=== PATIENT | male | born 1980 ===

== ENCOUNTER 2025-03-07 06:32 | Inpatient (IN) | payer OTHER, SELFPAY ==
[2025-03-07] VITALS (24 sets, daily range): BP systolic 135–172; BP diastolic 90–119; BMI 22.1
[2025-03-07 03:32] LABS: Glucose - Point of Care 93 mg/dl (70-99)
--- NOTE | 2025-03-07 04:02 | ED.GENMED ---
History of Present Illness
General
Chief Complaint: Substance Abuse
Source: patient
Exam Limitations: clinical condition
Time Seen by Provider: 03/07/25 03:57
History of Present Illness
History of Present Illness:
See MDM
Past History
Past History
ED Past Medical History: None
ED Past Surgical History: None
Social History
Drug: Narcotics
Phy Exam
Physical Exam
Physical Exam:
See MDM
Course
Orders/Labs/Results
Orders:
Orders
03/07/25 04:01
Naloxone [Narcan] 0.4 mg IV NOW STA
03/07/25 04:42
Alcohol Urgent
Complete Blood Count/With Diff Urgent
Comprehensive Metabolic Panel Urgent
03/07/25 05:22
Naloxone [Narcan] 0.4 mg IV NOW STA
Abnormal Lab Results
03/07/25
04:42
WBC 11.1 H 10^3/uL
(4.8-10.8)
RBC 4.45 L 10^6/uL
(4.70-6.10)
Hgb 12.1 L g/dL
(13.0-18.0)
Hct 38.9 L %
(39.0-52.0)
MCHC 31.1 L g/dL
(33.0-37.0)
Absolute Neuts (auto) 8.5 H 10^3/uL
(1.4-6.5)
Neutrophils % 76.6 H %
(42.2-75.2)
Lymphocytes % 17.0 L %
(20.5-51.1)
03/07/25 04:42
03/07/25 04:42
Vital Signs
Initial and Last Documented VS:
Initial Vital Signs
Temp Pulse Resp BP Pulse Ox
99 F 74 19 157/110 97
03/07/25 03:37 03/07/25 03:37 03/07/25 03:37 03/07/25 03:37 03/07/25 03:37
Last Documented Vital Signs
Temp Pulse Resp BP Pulse Ox
99 F 114 23 167/93 83
03/07/25 03:37 03/07/25 05:16 03/07/25 05:16 03/07/25 05:16 03/07/25 04:03
MDM/Problems Addressed
Differential Diagnosis Includes:
Note:
CHIEF COMPLAINT(S)
Altered mental status.
HISTORY OF PRESENT ILLNESS
The patient is a 44-year-old male who was brought to the emergency department by police. He was reported to be excessively sleepy and unable to communicate effectively, which inhibited his ability to be incarcerated. There is suspicion that the
patient used heroin, as indicated by the police. Upon initial examination, his pupils were not pinpoint. The patient provided an incorrect name to the police during the encounter. The plan involves administration of naloxone (Narcan) due to
suspected opioid overdose and conducting further investigations, including blood work to assess alcohol level and potential head imaging if necessary.
PHYSICAL EXAM
General: Sleepy but responds to verbal stimuli. Disheveled
Skin: Warm, dry.
Head: Normocephalic, atraumatic
Neck: Appears supple, trachea midline.
Eyes, Ears, Nose, Mouth, and Throat: Pupils 3 mm and reactive
Cardiovascular: No signs of cyanosis
Respiratory: Respirations are non-labored.
Abdomen: Non-distended
Musculoskeletal: No deformities
Neurological: Is able to move all 4 extremities.
Psychiatric: Flat affect
PLAN
Administer naloxone due to suspected opioid overdose. If insufficient response, proceed with basic blood work including assessment of alcohol levels, and consider head imaging.
SUMMARY OF ENCOUNTER
The patient, a 44-year-old male, was brought to the emergency department by police due to excessive sleepiness and inability to be incarcerated. Suspected heroin use prompted the administration of naloxone. Further management involved obtaining
blood work to assess alcohol levels and considering head imaging if the patients condition does not improve.
EMERGENCY TREATMENTS ADMINISTERED
Naloxone was administered.
MEDICATION RECONCILIATION
Naloxone was administered to the patient due to suspected opioid overdose.
DIAGNOSIS
- Suspected opioid overdose (ICD-10: F11.129)
- Altered mental status (ICD-10: R41.82)
- Possible alcohol intoxication (ICD-10: F10.129)
MEDICAL DECISION MAKING
-Complexity of Data Reviewed: Chronic conditions affecting care have not been explicitly discussed, but a suspected opioid overdose and altered mental status were addressed, along with a differential diagnosis that includes:
- Opioid overdose
- Alcohol intoxication
- Head trauma
- Metabolic imbalance
- Neurological disorder
- Hypoglycemia
- Sedative/hypnotic/anxiolytic intoxication
- Polypharmacy effects
- Infection
-Data:
Category 1:
- The patient was treated with naloxone for suspected opioid overdose.
- Initial evaluation included a physical examination, and blood work was planned to assess alcohol levels.
Category 2:
N/A
-Risk:
- Prescription medication was administered (naloxone), due to suspected opioid overdose.
- Consideration of head imaging and further testing is based on ongoing evaluation of the patients response to initial treatment.
03/07/25 - 04:46
Administered Narcan with positive response; patient became alert and conversational. Patient admits heroin use earlier today, denies suicidal intent.
03/07/25 - 05:27
Patient initially experienced a lucid interval after the first dose of Narcan. Currently, the patient is diaphoretic and agitated but remains difficult to arouse. Concern for possible co-ingestion. Administering a second dose of Narcan. Plan to
admit the patient to the ICU for airway monitoring.
SUMMARY OF ENCOUNTER
The patient, a 44-year-old male, was brought to the emergency department by the police due to altered mental status and excessive sleepiness. There was suspicion of heroin use. On initial evaluation, the patient was non-compliant due to his altered
mental status. A dose of naloxone (Narcan) was administered, after which the patient became alert and admitted to recent heroin use. Although the patient denied other substance use, he soon experienced altered mental status again, showed signs of
withdrawal, and was difficult to arouse. Concern for possible co-ingestion prompted the administration of a second dose of naloxone. Due to the patients condition, he was admitted to the ICU for airway monitoring and management of suspected drug
overdose.
DISPOSITION
Admit to ICU for airway monitoring and overdose management.
ASSESSMENT
Suspected opioid overdose with secondary altered mental status and potential co-ingestion.
EMERGENCY TREATMENTS ADMINISTERED
Naloxone (Narcan) was administered initially and a second dose was given due to reoccurrence of symptoms.
PLAN
Administer a second dose of naloxone due to persistent altered mental status. Admit the patient to the ICU for close monitoring of airway and further management of opioid overdose.
MEDICATION RECONCILIATION
Naloxone (Narcan) was administered due to suspected opioid overdose.
MEDICAL DECISION MAKING
-Complexity of Data Reviewed: Chronic conditions affecting care include suspected opioid overdose and altered mental status. The differential diagnosis considered includes opioid overdose, alcohol intoxication, head trauma, metabolic imbalance,
neurological disorder, hypoglycemia, sedative/hypnotic/anxiolytic intoxication, polypharmacy effects, and infection.
-Data:
Category 1: Naloxone administration was reviewed due to suspected opioid overdose. Physical examination and plan for further airway monitoring in ICU were considered.
Category 3: Discussion of patient management based on symptoms and response to treatment, leading to decision for ICU admission.
-Risk: Due to the severity of the opioid overdose and concerns for co-ingestion, the patient was admitted to the ICU for close monitoring and management, highlighting the significant risk posed by the situation.
DIAGNOSIS
- Suspected opioid overdose (ICD-10: F11.129)
- Altered mental status (ICD-10: R41.82)
- Possible co-ingestion leading to reoccurrence of symptoms after initial improvement.
*Pulse Oximetry
SaO2: 83
Oxygen Mode of Delivery: Room air
Patient hypoxic: no
*Critical Care Note
Total Time (30-74mins, 75-104mins- exclusive of procedures): 33 min
comment:
The high probability of a clinically significant, sudden or life threatening deterioration of the cardiovascular system(s) required my full and direct attention, intervention and personal management. The aggregate critical care time was 33 minutes.
This time is in addition to time spent performing reported procedures but includes the following:
[x] Data Review and interpretation
[x] Patient assessment and monitoring of vital signs
[x] Documentation
[x] Medication orders and management
ED Attending Note
-
Portions of this chart may have been created with voice recognition software.� Occasional wrong word or��sound alike� substitutions may have occurred due to the inherent limitations of voice recognition software.
Discharge Plan
Departure
Patient Disposition: Admit
Date of Disposition: 03/07/25
Time of Disposition: 05:30
Admit to: ICU
Presentation/result/management discussed w/ accepting MD/DO: Hospitalist
Discharge Problem:
Acute drug overdose, Altered mental status
Prescriptions:
No Action
Unobtainable
0
Interventions
Interventions:
*Risk Screen - Suicide Last Done: 03/07/25 03:54
*General Assessment Last Done: 03/07/25 03:54
*Neglect/Abuse Screening Last Done: 03/07/25 03:54
*ED- Fall Risk Assessment Last Done: 03/07/25 03:54
*ED COVID-19 Vaccine History Last Done: 03/07/25 03:54
*ED Influenza Vaccine History Last Done: 03/07/25 03:54
ED-Psychological Assessment Last Done: 03/07/25 03:54
Discharge Date and Time
Print Language: AZERI
[2025-03-07] MEDS: NARCAN 0.4 MG IV ×2 (04:47→05:30)
[2025-03-07 04:48] LABS: Hematocrit 38.9 % (39.0-52.0); Hemoglobin 12.1 g/dL (13.0-18.0); Mean Corp Hgb Conc. 31.1 g/dL (33.0-37.0); Mean Corpuscular Volume 87.4 fL (80.0-94.0); Nucleated Red Blood Cells % 0 % (-); Platelet Count 273 10^3/uL (130-400); Red Cell Dist. Width 14.4 % (11.5-14.5)
[2025-03-07 05:09] LABS: ALT (SGPT) 37 U/L (0-50); AST (SGOT) 36 U/L (17-59); Albumin 4.2 g/dl (3.5-5.0); Alkaline Phosphatase 81 U/L (38-126); Blood Urea Nitrogen 20 mg/dl (9-20); Calcium 9.3 mg/dl (8.4-10.2); Carbon Dioxide 26 mmol/L (22-30); Chloride 107 mmol/L (98-107); Glucose 98 mg/dl (70-99); Potassium 4.7 mmol/L (3.5-5.1); Sodium 139 mmol/L (135-145); Total Protein 7.5 g/dl (6.3-8.2); eGFR > 60.00
[2025-03-07] MEDS: ZOFRAN 4 MG IV (05:42)
[2025-03-07] MEDS: VALIUM INJECTION 5 MG IV (06:07)
--- NOTE | 2025-03-07 06:12 | HPS.HSE ---
Family Physician
-
Family Physician: INTERVIEWE UNKNOWN - PT NOT
Chief Complaint
-
Somnolence
History of Present Illness
Patient is a 44y M with unknown PMH who presents to ED via police for evaluation of somnolence / lethargy. History obtained entirely from ED staff given patient poor mental status / inability to contribute. Patient was brought to the ED by
police after he was found to be somnolent / poorly responsive and had difficult answering police questions. He is reportedly homeless. Upon arrival to the ED, patient was lethargic - but reportedly followed some commands and answered some
questions. He admitted to smoking heroin earlier in the evening. Patient received a dose of Narcan in the ED and began to have new symptoms of agitation, profuse diaphoresis, diarrhea.
At the time of my examination, patient is profusely diaphoretic, incontinent of stool, tremulous. He is agitated with any tactile interaction. He will open his eyes, but does not answer questions or follow commands.
Medical History
Past Medical History
Past Medical History: Reports Other
Additional Past Medical History:
Unknown
Past Surgical History: Reports Other
Additional Past Surgical History:
Unknown
Social History
Unable to obtain full social history at this time due to: Patient Non-verbal
Family History
Family History: Unable to Obtain
Allergies / Home Medications
Allergies reflects when Allergies were last updated in [employer].
Home Medications with original date entered in [employer]
Allergy/Medication List:
Unable to Obtain
If medication reconciliation has not been performed, why?: Unresponsive
Review of Systems
-
Unable to obtain full review of systems at this time due to: Patient Non-verbal
Physical Exam
Vital Signs
Vital Signs
Temp Pulse Resp BP Pulse Ox
99 F 114 23 167/93 83
03/07/25 03:37 03/07/25 05:16 03/07/25 05:16 03/07/25 05:16 03/07/25 04:03
Physical Exam
General: Other (44y acutely ill male profusely diaphoretic, tremulous. Opens eyes but does not answer questions / follow commands.)
HEENT: Other (Dry MM. Neck supple.)
Respiratory: Other (Decreased at bases - otherwise clear.)
Cardiac: S1/S2 and Tachycardia
GI: Other (No evident tenderness. Incontinent of loose stool.)
Musculoskeletal: No Clubbing, No Cyanosis and No Edema
Neuro: Other (Tremulous / diaphoretic. Opens eyes but does not answer questions / follow commands.)
Psych: Agitated (Restless)
Laboratory Results
-
03/07/25 04:42
03/07/25 04:42
Laboratory Results
Total Bilirubin 0.4 mg/dl (0.2-1.3) 03/07/25 04:42
AST 36 U/L (17-59) 03/07/25 04:42
ALT 37 U/L (0-50) 03/07/25 04:42
Alkaline Phosphatase 81 U/L (38-126) 03/07/25 04:42
Impression/Plan
-
A/P: Patient is a 44y M with unknown PMH who was brought to ED by police for evaluation of somnolence / poor responsiveness.
Opioid Withdrawal Syndrome
- Admit to ICU for further evaluation and treatment.
- Patient appears to be in precipitated withdrawal with diaphoresis, tremulousness, diarrhea, N/V, etc.
- Opioid withdrawal protocol.
- IVF support.
- Follow-up UDS to rule out / verify any additional substances.
- Regulatory And Compliance Technician evaluation for additional recommendations.
- Follow for clinical improvement / improved mental state and meaningful responsiveness.
- CT head when patient calm / cooperative enough to proceed.
Hypoxemia
- ? secondary to aspiration event, etc.
- O2 support.
- Check CXR.
- Follow for development of fever / other new symptoms.
DVT Prophylaxis: SCDs
Code Status: Full
[2025-03-07 06:14] LABS: Troponin I 0.015 ng/ml
--- NOTE | 2025-03-07 07:35 | PTCARENOTE ---
Received patient from ED, drowsy but arousable to voice, A&Ox2, only answered simple questions at this time, can follow simple commands, face flushed, sweaty, denied pain throughout, ST, BP WNL, on RA, vomited once.
Patient only reported substance use as part of PMH, stated no known drug allergy.
--- NOTE | 2025-03-07 08:01 | W.PN.HOSP.TC ---
Today's Communication/Plan
-
Continue buprenorphine and oxycodone
Monitor GCS and COWS
Maintenance IVF, NPO
Assessment / Plan
Assessment / Plan
#Acute metabolic encephalopathy
#Precipitated opiate withdrawal
#Opioid intoxication with possible OD
- Presented with somnolence/minimal responsiveness that turned agitation following Narcan
- COWS score currently 35; started on buprenorphine protocol and as needed oxycodone
- Was also started on as needed clonidine, hydroxyzine, Zofran for symptomatic care
- Nursing today states agitation seems to be improving at this time
- Will continue with buprenorphine protocol and as needed oxycodone
- If COWS score starts to uptrend will need to consider Precedex drip
- Monitor COWS and GCS
#Leukocytosis
- Unclear cause, question of aspiration when he was more somnolent
- Chest x-ray without any abnormalities; UA ordered and results pending
- Continue to trend CBC and temperature curve, hold off on antibiotics for now
#Homeless status
Diet: N.p.o. until mental status improves, maintenance IVF
DVT: SQ Lovenox
Code: Full
Dispo: Rehab if amenable
Anticipated Discharge: > 48 hours
Subjective/Interval History
-
Date of Service: March 07, 2025
Seen and examined at the bedside. No acute events since admission though remains with agitation. Hypertensive with tachycardia though otherwise stable on room air without fever
Labs came back with WBC 11.1. Chest x-ray was unremarkable for acute processes. Most recent COWS 35
ROS limited by his mental status and acuity of his condition
Objective Data
-
Labs:
Laboratory Results
03/07/25
04:42
WBC 11.1 H
Hgb 12.1 L
Hct 38.9 L
Plt Count 273
Sodium 139
Potassium 4.7
Chloride 107
Carbon Dioxide 26
BUN 20
Creatinine 0.7
Glucose 98
Calcium 9.3
Total Bilirubin 0.4
AST 36
ALT 37
Alkaline Phosphatase 81
Vital Signs:
Vital Signs
Temp Pulse Resp BP Pulse Ox
99 F 68 36 135/90 94
03/07/25 03:37 03/07/25 06:30 03/07/25 06:30 03/07/25 06:22 03/07/25 06:15
Review of Systems
-
Unable to obtain full review of systems at this time due to: Acuity
Physical Exam
-
General: Well Developed, Appears in Distress and Appears Chronically Ill
HEENT: Normocephalic, Atraumatic, Moist Mucous Membranes, Anicteric and PERRLA
Respiratory: Clear to Auscultation and Non Labored Respirations; Negative Accessory Resp Muscle Use
Cardiac: Regular Rhythm, S1/S2 and Tachycardic; Negative Murmur, Rub or Gallop
GI: Soft, Nontender, Nondistended and Normal Bowel Sounds
Musculoskeletal: No Clubbing, No Cyanosis and No Edema
Skin: Warm and Dry; Negative Rash
Neuro: Awake, Nonfocal/Grossly Intact and Central Nerve's Intact; Negative Alert or Oriented
Psych: Agitated
Data Reviewed
-
Labs: Labs Reviewed by me and Discussed with Patient
[2025-03-07] MEDS: LR 1000 IV ×3 (08:14→22:39)
[2025-03-07] MEDS: BELBUCA 300 MCG BUCCAL ×5 (08:14→23:39)
[2025-03-07] MEDS: NSS (PRESERVATIVE FREE) 10 ML IV (08:20)
[2025-03-07] MEDS: PROTONIX IV 40 MG IV (08:20)
--- NOTE | 2025-03-07 08:21 | CON.INTV ---
Consultation
Consultation Request
Date/Time Consultation Requested: 03/07/2025708
Date/Time Consultation Performed: 03/07/2025817
Requesting Provider: Dr. Greenberg
Performing Provider: Dr. Nguyen
Reason for Consultation: Opiate withdrawal/AMS
Medical History
-
Chief Complaint: Somnolent/lethargic
History of Present Illness:
44-year-old male with no known past medical history who was dropped off at the hospital by [employer] police after doing a courtesy run for patient that appeared off balance and appeared lethargic/altered. Per documentation, the patient stated that
he smoked heroin before coming into the hospital. Patient was unable to stay awake down in the ER. Patient was given Narcan 0.4 mg IV x 2, however this led to him becoming extremely agitated. He was given 5 mg of diazepam. Initial vitals showed
he was afebrile to 99 �F, pulse rate 74, respiratory rate 19, BP 157/110 and saturating 97% on room air. Initial labs showed mild leukocytosis to 11.1, Hb 12.1, blood gas with no evidence of hypercapnia (pH 7.43, pCO2 33), troponin negative at
0.015, alcohol level negative, and urine drug screen with positive for multiple drugs including fentanyl, amphetamines, methamphetamines, cocaine and marijuana. CT head showed no acute intracranial hemorrhage or mass effect. CXR showed no acute
cardiopulmonary process. Given his lethargic state that progressed to significant agitation after Narcan was administered which was due to opiate withdrawal, and the fact that he may need medications to treat his symptoms which could include
Precedex drip, patient was admitted to the ICU for further care with haul truck driver service consulted for additional management/recommendations.
Patient was seen this morning. He is tired and minimally responsive. He does open his eyes to tactile and verbal stimulation. Current heart rate 121, BP 157 105 and he is saturating 100% currently on room air.
PMHx: Polysubstance abuse including marijuana, fentanyl, amphetamines/methamphetamines and cocaine
PSHx: Unknown
Past Medical History
Past Medical History: Other (Above as per HPI)
Past Surgical History: Other (Above as per HPI)
Social History
Tobacco: Other (Unknown)
Alcohol: Other (Unknown)
Drug: Marijuana, Cocaine, Narcotics and IVDA (Unknown)
Family History
Family History: Unable to Obtain
Allergies / Home Medications
Allergies
Allergy/AdvReac Type Severity Reaction Status Date / Time
No Known Drug Allergies Allergy Unknown Verified 03/07/25 09:42
Home Medications
�Medication �Instructions �Recorded �Confirmed �Last Taken �Type
Unobtainable 03/07/25 03/07/25 Unknown History
Review of Systems
-
Unable to Obtain full review of systems at this time due to: Acuity (Patient is being uncooperative and is also lethargic)
Vitals / Labs / Diagnostic Testing
Vital Signs
Temp Pulse Resp BP Pulse Ox
98.1 F 110 29 168/103 97
03/07/25 07:40 03/07/25 10:25 03/07/25 09:30 03/07/25 10:25 03/07/25 09:30
Lab Data
03/07/25 04:42
03/07/25 04:42
Laboratory Results
03/07/25
08:46
PT 13.5
INR 1.00
APTT 30.2
Diagnostic Testing:
Physical Exam
-
HEENT: Normocephalic and Anicteric
Cardiovascular: S1/S2 and Peripheral Edema (negative)
Respiratory: Wheeze (negative), Rales (negative), Rhonchi (negative) and Non-Labored Respirations
GI: Soft, Non Distended, Non Tender and Normal Bowel Sounds
Neurology: Tremors (negative) and Other (Lethargic although arousable to voice and tactile stimulation but then quickly falls back asleep)
Skin: Warm and Dry
General: Respiratory Distress (negative), Comfortable, Fever (negative) and Chills (negative)
Assessment
-
Assessment: 44-year-old male with no known past medical history who was dropped off at the hospital by [employer] police after doing a courtesy run for patient that appeared off balance and appeared lethargic/altered. Per documentation, the patient
stated that he smoked heroin before coming into the hospital. Patient was unable to stay awake down in the ER. Patient was given Narcan 0.4 mg IV x 2, however this led to him becoming extremely agitated. He was given 5 mg of diazepam. Initial
vitals showed he was afebrile to 99 �F, pulse rate 74, respiratory rate 19, BP 157/110 and saturating 97% on room air. Initial labs showed mild leukocytosis to 11.1, Hb 12.1, blood gas with no evidence of hypercapnia (pH 7.43, pCO2 33), troponin
negative at 0.015, alcohol level negative, and urine drug screen with positive for multiple drugs including fentanyl, amphetamines, methamphetamines, cocaine and marijuana. CT head showed no acute intracranial hemorrhage or mass effect. CXR showed
no acute cardiopulmonary process. Given his lethargic state that progressed to significant agitation after Narcan was administered which was due to opiate withdrawal, and the fact that he may need medications to treat his symptoms which could
include Precedex drip, patient was admitted to the ICU for further care with haul truck driver service consulted for additional management/recommendations.
Chronic conditions SEAMER: Polysubstance abuse including marijuana, fentanyl, amphetamines/methamphetamines and cocaine
Impression:
#AMS with lethargic state likely due to fentanyl use s/p opiate withdrawal after Narcan given in ER
#Leukocytosis
#Anemia
#Respiratory alkalosis (mild)
#Polysubstance abuse with urine toxicology screen positive for fentanyl, amphetamines, methamphetamines, cocaine and marijuana
Plan:
- Continue to monitor in ICU and continue with opioid treatment with Subutex microdosing protocol
- Administer supportive medications as needed, using clonidine, hydroxyzine, Zofran, Toradol, Imodium, Zyprexa, Zanaflex and oxycodone
- Low threshold to start Precedex drip, especially if he becomes agitated - currently no need for Precedex infusion as he is calm and sleeping in NAD
- Continue aspiration precautions, keeping HOB >30-45�
- Maintain SpO2 >90-94%, using supplemental O2 if needed
- Trend WBC; monitor off antibiotics; monitor temperature curve
- Maintain MAP>65
- Treat hypertension with prn IV medications; may need to start scheduled antihypertensives if BP remains elevated with SBP >140 and DBP >90
- Replete electrolytes with K>4, Mg>2
- Maintain euglycemia with goal BG 140-180; check A1C
- Trend H/H and transfuse if needed to keep Hb>7g/dL; keep plt>20k, unless there is concern for bleeding then keep plt>50k
- prn nebulized bronchodilators - not currently bronchospastic
- Incentive spirometer encouraged 10x per hour for at least 4 hrs a day
- DVT ppx: LMWH
Continue to monitor in the ICU. Low threshold to start Precedex drip. May also need Cardene gtt if SBP becomes significantly elevated >180�200mmHg
If he remains stable with no need for drips, then will downgrade out of ICU tomorrow on 03/08.
Total time spent today was 82 minutes for this encounter. Time includes reviewing laboratory test/imaging results, reviewing pertinent medical records, obtaining and reviewing medical history, performing an appropriate exam, ordering medications,
tests and procedures. Time also includes documentation of this encounter, coordinating patient care and communicating with other healthcare professionals. Total time does not include separately billed tests performed on this date of service.
[2025-03-07] MEDS: TYLENOL 1000 MG PO ×3 (09:00→23:39)
[2025-03-07] MEDS: ZANAFLEX 2 MG PO ×2 (09:00→20:01)
[2025-03-07] MEDS: OXYCONTIN (CONTROLLED RELEASE) 40 MG PO ×3 (09:00→23:40)
[2025-03-07 09:24] LABS: INR 1.00; PT 13.5 Sec (11.4-14.6)
[2025-03-07 09:25] LABS: APTT 30.2 Sec (23.4-35.0)
[2025-03-07] MEDS: CATAPRES 0.1 MG PO (10:25)
[2025-03-07 11:32] LABS: Magnesium 2.2 mg/dl (1.6-2.3)
[2025-03-07 11:44] LABS: Glucose - Point of Care 96 mg/dl (70-99)
--- NOTE | 2025-03-07 12:18 | PTCARENOTE ---
Reassessed the patient, RASS -1, arousable to voice, less agitated/anxious with PRN meds, NSR, BP WNL, on RA, N/V improving, tolerating PO meds.
--- NOTE | 2025-03-07 13:56 | CM ---
CM reviewed chart, consult received for opioid withdrawal.
Patient seen bedside, able to provide mothers name and contact information for emergency contact: Dora Monreal [phone].
Patient reports he is living on the streets, offered [facility], patient declining.
Unable to obtain further information.
CM will continue to follow.
Plan; offered [facility], declined.
[2025-03-07] MEDS: ATARAX 50 MG PO ×2 (15:14→21:19)
[2025-03-07 15:17] LABS: Venous Blood Gas B.E. -1.8 mmol/L (-4 to +4); Venous Blood Gas O2 Sat % 97.9 %
--- NOTE | 2025-03-07 16:00 | PTCARENOTE ---
Reassessed the patient, RASS -1 to RASS +1, continue following opioid withdraw protocol, no other changes from previous assessments.
[2025-03-07] MEDS: LOVENOX 40 MG SC (16:54)
[2025-03-07] MEDS: APRESOLINE 10 MG IV ×2 (18:05→22:40)
--- NOTE | 2025-03-07 20:00 | PTCARENOTE ---
Rec'd pt resting in bed, restless, COWS 17, Zanaflex 2mg po given, oriented to person, place, tremulous, follows commands, SR/ ST, + pulses, skin warm/diaphoretic, RA, lungs decr, sat 100, + bowel sounds, no bm, abd soft, no n/v, ora sips h20 w/
meds, #30 condom cath applied
[2025-03-07] MEDS: TRANDATE 10 MG IV (21:15)
--- NOTE | 2025-03-07 21:20 | PTCARENOTE ---
labetolol 10 mg i v given for bp, atarax 50mg po given for anx
--- NOTE | 2025-03-07 22:42 | PTCARENOTE ---
apres 10 mg iv given for bp
[2025-03-08] VITALS (19 sets, daily range): BP systolic 130–175; BP diastolic 70–115; BMI 22.2
--- NOTE | 2025-03-08 | PTCARENOTE ---
sys reviewed, COWs 14, CHG bath done, linens changed
[2025-03-08] MEDS: TRANDATE 10 MG IV (01:11)
[2025-03-08] MEDS: CATAPRES 0.1 MG PO (01:11)
--- NOTE | 2025-03-08 01:13 | PTCARENOTE ---
labetolol 10mg iv given for bp, catapress 0.1 mg po given foir agitation
[2025-03-08 01:31] LABS: Urine Character Slightly Cloudy (Clear)
[2025-03-08 01:54] LABS: Urine Red Blood Cell >100 /HPF (0-2); Urine Squamous Cell SEEN /LPF (Few); Urine Urothelial Cell SEEN /LPF (FEW)
[2025-03-08 03:01] LABS: Hematocrit 37.9 % (39.0-52.0); Hemoglobin 12.2 g/dL (13.0-18.0); Mean Corp Hgb Conc. 32.2 g/dL (33.0-37.0); Mean Corpuscular Volume 84.8 fL (80.0-94.0); Platelet Count 280 10^3/uL (130-400); Red Cell Dist. Width 14.6 % (11.5-14.5)
[2025-03-08 03:37] LABS: ALT (SGPT) 31 U/L (0-50); AST (SGOT) 28 U/L (17-59); Albumin 3.7 g/dl (3.5-5.0); Alkaline Phosphatase 59 U/L (38-126); Blood Urea Nitrogen 11 mg/dl (9-20); Calcium 9.3 mg/dl (8.4-10.2); Carbon Dioxide 23 mmol/L (22-30); Chloride 106 mmol/L (98-107); Estimated Creatinine Clearance > 125 ml/min; Glucose 106 mg/dl (70-99); Magnesium 1.8 mg/dl (1.6-2.3); Potassium 4.0 mmol/L (3.5-5.1); Sodium 133 mmol/L (135-145); Total Protein 7.0 g/dl (6.3-8.2); eGFR > 60.00
[2025-03-08] MEDS: BELBUCA 300 MCG BUCCAL (04:03)
--- NOTE | 2025-03-08 04:10 | PTCARENOTE ---
sys reviewed, changes noted
[2025-03-08] MEDS: APRESOLINE 10 MG IV (05:04)
--- NOTE | 2025-03-08 05:05 | PTCARENOTE ---
apresoline 10mg iv given for bp
[2025-03-08] MEDS: LR 1000 IV (06:15)
--- NOTE | 2025-03-08 08:40 | W.PN.HOSP.TC ---
Today's Communication/Plan
-
Continue opioid withdrawal protocol
Assessment / Plan
Assessment / Plan
Physical exam:
General: Acutely ill
HEENT: Normocephalic, Atraumatic and dry mucous Membranes
Respiratory: Clear to Auscultation; Negative Wheezes, Rales or Rhonchi
Cardiac: Regular Rhythm and S1/S2
GI: Soft, Nontender and Nondistended
Musculoskeletal: No Clubbing, No Cyanosis and No Edema
Neuro: Awake, Alert but closes eyes and sleep easily and Oriented, no neurological deficit
Psych: Restless, anxious.
A/P:
Acute metabolic encephalopathy with polysubstance abuse and severe opiate withdrawal:
Continue microdosing buprenorphine
Not requiring Precedex
Continue monitor COWS
Currently on hydroxyzine, tizanidine, high doses oxycodone tapering, clonidine, Tylenol, and olanzapine
Urine tox positive for fentanyl, amphetamines, methamphetamines, cocaine, and marijuana
CT head unremarkable
PT eval
Elevated blood pressure reading-unclear if withdrawal related or hypertension:
Continue amlodipine
Continue clonidine
Monitor blood pressure
Leukocytosis:
Likely reactive
Anemia:
Stable
Continue to monitor
Hyponatremia:
Mild
Continue to trend
DVT prophylaxis:
Lovenox SQ
CODE STATUS:
Full code
Total time spent on today's encounter was 52 minutes which included time spent in counseling the patient/family regarding diagnosis and treatment plan as listed above, goals of care, and symptom management. Case was discussed with nursing staff,
specialists, and care coordinators/case management. All labs and imaging personally reviewed by me. Remainder the time spent in detailed review of previous records, lab data, imaging, and other medical provider documentation.
Anticipated Discharge: > 48 hours
Subjective/Interval History
-
Date of Service: March 08, 2025
Patient alert although fluctuates and denies nausea. Afebrile
Objective Data
-
Labs:
Laboratory Results
03/08/25
02:46
WBC 10.1
Hgb 12.2 L
Hct 37.9 L
Plt Count 280
Sodium 133 L
Potassium 4.0
Chloride 106
Carbon Dioxide 23
BUN 11
Creatinine 0.7
Glucose 106 H
Calcium 9.3
Total Bilirubin 0.8
AST 28
ALT 31
Alkaline Phosphatase 59
Vital Signs:
Vital Signs
Temp Pulse Resp BP Pulse Ox
97.6 F 85 23 149/90 95
03/08/25 08:34 03/08/25 06:00 03/08/25 06:00 03/08/25 06:00 03/08/25 06:00
I&O
03/07/25 03/08/25 03/09/25
06:59 06:59 06:59
Intake Total 3315 / 3315
Output Total 800 / 800 400 / 400
Balance 2515 / 2515 -400 / -400
--- NOTE | 2025-03-08 08:46 | W.PN.INTV ---
Today's Communication / Plan
Recommendations
Continue Subutex microdosing protocol
Downgrade to telemetry
BP control
Supportive meds as needed
Magnesium repleted
Assessment
-
Assessment:
A 44-year-old male with a past medical history of polysubstance abuse, brought in by police for lethargy after reported heroin/fentanyl use. In the ED, he was somnolent, received Narcan X2 and developed marked agitation consistent with acute opioid
withdrawal. Urine toxicology positive for fentanyl, amphetamine/methamphetamines, cocaine and marijuana. CT head and chest x-ray negative for acute findings. Labs notable for mild leukocytosis, mild anemia, mild respiratory alkalosis. Patient
was admitted to the ICU for close monitoring and management of withdrawal/agitation risk and hemodynamic stability.
Impression:
# Altered mental status /opioid withdrawal
# Mild leukocytosis
# Mild anemia
# Mild respiratory alkalosis
# Polysubstance abuse with urine toxicology screen positive for fentanyl, amphetamines, methamphetamines, cocaine and marijuana
Plan:
# Altered mental status/opioid withdrawal
# Nausea
Patient admitted for ICU monitoring with Subutex microdosing protocol
Supportive medications as needed: Clonidine, hydroxyzine, Zofran, olanzapine, tizanidine, oxycodone.
Zofran 4 mg IV Q6PRN
S/p lactated Ringer's
Patient did not receive Precedex infusion as no increased agitation/remain calm
Benzodiazepines avoided unless severe agitation/concern for stimulant toxicity
Maintain SpO2 > 90-94%. Patient has not needed supplemental oxygen.
Aspiration precautions; keep HOB > 30 to 45 degrees
Incentive spirometry encouraged 10 times an hour x 4 hours a day
Patient deemed stable to be downgraded to telemetry on 03/08/2025
# Mild leukocytosis
WBC 10.1, decreased from 11.1 yesterday. Afebrile.
No antibiotics indicated, leukocytosis downtrending
# Hypertension
Goal MAP >65.
BP 144/90; continue IV hydralazine as needed
If consistently above 140/90, can consider scheduled antihypertensive agent
Clonidine not to be used as an antihypertensive as it carries risk of hypotension/rebound hypertension.
#Electrolytes
Na 133 03/08, decreased from 139 yesterday 03/07. CTM.
Replete electrolytes: K >4, Mg >2. Mg 1.8 03/08�repleted with 2 g over 2 hours.
Glucose today 106. Goal blood glucose 140-180. A1c pending.
Trend BMP
# Normocytic anemia
Hemoglobin 12.2. Stable.
No active bleeding. Transfuse if Hgb <7.
Trend CBC
# Constipation
Last bowel movement 03/06/2025.
Bowel regimen
DVT ppx: LMWH
Subjective Dataa
Subjective Data
Date of Service:
Date of Service: March 08, 2025
Patient evaluated at bedside this morning. He is only replying one word answers to questions. States 'yes' when asked if he feels uneasy. Denies shortness of breath, chest pain, nausea or vomiting.
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
Objective Data
Data Reviewed
Vital Signs / I&O / Oxygen:
Vital Signs
Temp Pulse Resp BP Pulse Ox
97.6 F 85 23 149/90 95
03/08/25 08:34 03/08/25 06:00 03/08/25 06:00 03/08/25 06:00 03/08/25 06:00
Intake and Output
03/07/25 03/08/25 03/09/25
06:59 06:59 06:59
Intake Total 3315 / 3315
Output Total 800 / 800 400 / 400
Balance 2515 / 2515 -400 / -400
SaO2 95
Physical Exam
General: Other (Appears slightly restless)
HEENT: Normocephalic
Cardiovascular: S1-S2 and Regular Rhythm
Respiratory: Clear
GI: Soft, Non Distended, Non Tender and Normal Bowel Sounds
Neurology: AO x 3 and Other (Has eyes closed)
Skin: Warm
Labs/Micro/Reports
Lab Data
03/08/25 02:46
03/08/25 02:46
Laboratory Results
03/07/25
08:46
PT 13.5
INR 1.00
APTT 30.2
[2025-03-08] MEDS: OXYCONTIN (CONTROLLED RELEASE) 40 MG PO ×2 (09:13→16:06)
[2025-03-08] MEDS: MAGNESIUM SULFATE 50 IV (09:14)
[2025-03-08] MEDS: TYLENOL 1000 MG PO ×2 (09:14→16:06)
[2025-03-08] MEDS: NSS (PRESERVATIVE FREE) 10 ML IV (09:14)
[2025-03-08] MEDS: PROTONIX IV 40 MG IV (09:14)
[2025-03-08] MEDS: SUBUTEX 2 MG SL ×4 (09:15→21:30)
[2025-03-08 09:29] LABS: Glycohemoglobin (HgbA1c) 5.9 % (4.0-5.9)
[2025-03-08] MEDS: NORVASC 5 MG PO (12:29)
--- NOTE | 2025-03-08 14:52 | PTCARENOTE ---
Patient has been drowsy and cooperative. Remains on COWS. NSR on telemetry. Norvasc started for hypertension. Worked with PT. Regular diet started. Denies N/V. Ate lunch oob in chair. IVF capped. Voiding via urinal.
Report called to [facility].
Patient transferred with belongings via wheelchair on telemetry.
--- NOTE | 2025-03-08 15:15 | PTCARENOTE ---
Received pt from ICU via wheelchair. WC placed next to bed, pt ambulated to bed with standby assist.advertising consultant placed. Assessed and oriented to room. AAOx3, flat. No complaints of pain. Verbalized understanding of call bel. Call medel within
close reach. Will continue to monitor.
--- NOTE | 2025-03-08 15:26 | CM ---
Patient has declined [facility] and any further PT/OT evaluations. Discharge POC: To community with no services.
[2025-03-08] MEDS: LOVENOX 40 MG SC (17:41)
[2025-03-09] MEDS: OXYCONTIN (CONTROLLED RELEASE) 40 MG PO (01:10)
[2025-03-09] MEDS: TYLENOL 1000 MG PO ×4 (01:10→23:49)
[2025-03-09 03:09] VITALS: BP 160/111
[2025-03-09 06:08] VITALS: BMI 21.9
[2025-03-09 07:35] VITALS: BP 157/108
[2025-03-09] MEDS: SUBUTEX 4 MG SL ×3 (07:49→17:53)
[2025-03-09] MEDS: OXYCONTIN (CONTROLLED RELEASE) 20 MG PO ×3 (07:49→23:49)
[2025-03-09] MEDS: NORVASC 5 MG PO (07:50)
--- NOTE | 2025-03-09 08:50 | W.PN.HOSP.TC ---
Today's Communication/Plan
-
See plan
Assessment / Plan
Assessment / Plan
Physical exam:
General: Acutely ill
HEENT: Normocephalic, Atraumatic and dry mucous Membranes
Respiratory: Clear to Auscultation; Negative Wheezes, Rales or Rhonchi
Cardiac: Regular Rhythm and S1/S2
GI: Soft, Nontender and Nondistended
Musculoskeletal: No Clubbing, No Cyanosis and No Edema
Neuro: Awake, Alert but closes eyes and sleep easily and Oriented, no neurological deficit
Psych: Restless, anxious.
A/P:
Acute metabolic encephalopathy with polysubstance abuse and severe opiate withdrawal:
Continue microdosing buprenorphine
Not requiring Precedex
Continue monitor COWS
Currently on hydroxyzine, tizanidine, high doses oxycodone tapering, clonidine, Tylenol, and olanzapine
Urine tox positive for fentanyl, amphetamines, methamphetamines, cocaine, and marijuana
CT head unremarkable
PT eval
Elevated blood pressure reading-unclear if withdrawal related or hypertension:
Continue amlodipine
Continue clonidine
Monitor blood pressure
Leukocytosis:
Likely reactive
Anemia:
Stable
Continue to monitor
Hyponatremia:
Mild
Continue to trend
DVT prophylaxis:
Lovenox SQ
CODE STATUS:
Full code
Total time spent on today's encounter was 35 minutes which included time spent in counseling the patient/family regarding diagnosis and treatment plan as listed above, goals of care, and symptom management. Case was discussed with nursing staff,
specialists, and care coordinators/case management. All labs and imaging personally reviewed by me. Remainder the time spent in detailed review of previous records, lab data, imaging, and other medical provider documentation.
Anticipated Discharge: 24 - 48 hours
Subjective/Interval History
-
Date of Service: March 09, 2025
Patient feels better overall. No nausea or vomiting. Afebrile
Objective Data
-
Labs:
Laboratory Results
03/09/25
06:00
WBC Pending
Hgb Pending
Hct Pending
Plt Count Pending
Sodium Pending
Potassium Pending
Chloride Pending
Carbon Dioxide Pending
BUN Pending
Creatinine Pending
Glucose Pending
Calcium Pending
Vital Signs:
Vital Signs
Temp Pulse Resp BP Pulse Ox
98.9 F 79 16 157/108 99
03/09/25 07:35 03/09/25 07:50 03/09/25 07:35 03/09/25 07:50 03/09/25 07:35
I&O
03/08/25 03/09/25 03/10/25
06:59 06:59 06:59
Intake Total 3315 / 3315 615 / 615
Output Total 800 / 800 2625 / 2625
Balance 5 / 5 -2009 /
[2025-03-09 10:53] VITALS: BP 154/106
[2025-03-09 15:15] VITALS: BP 158/100
[2025-03-09] MEDS: LOVENOX SC (17:57)
[2025-03-09 19:33] VITALS: BP 152/99
[2025-03-09] MEDS: SUBUTEX SL (21:49)
[2025-03-09 23:03] VITALS: BP 139/99
--- NOTE | 2025-03-10 00:35 | PTCARENOTE ---
Pt. refused HS dose of subutex. Education provided about importance of medication adherence. Pt. continued to refuse. Plan of care ongoing.
--- NOTE | 2025-03-10 03:01 | DOWNTIME ---
There was a [employer] Client [employer] Downtime on 03/10/2025 from 0100 to 03/10/2025 at 0255. Downtime documentation of patient's care, including medication administrations, has been reconciled in the electronic record per guidelines. Refer to the
patient's paper chart under the miscellaneous tab to see printed paper medication records and downtime forms.
[2025-03-10 03:53] VITALS: BP 146/99
[2025-03-10 05:04] VITALS: BMI 23.1
[2025-03-10] MEDS: TYLENOL 1000 MG PO ×3 (08:03→23:25)
[2025-03-10] MEDS: NORVASC 5 MG PO (08:03)
[2025-03-10] MEDS: SUBUTEX 8 MG SL ×2 (08:09→20:09)
[2025-03-10 08:10] VITALS: BP 148/102
--- NOTE | 2025-03-10 09:45 | PTCARENOTE ---
while in patient's room asking pt to reconsider getting his labs done, he was actively trying to take his IV out. This RN requested for pt to leave it alone. He stated that he would go to skilled nursing when he gets discharged. Appears to be gearing up for
possible elopement/AMA. Provider aware and not definite on discharge date.
[2025-03-10 11:38] VITALS: BP 137/102
--- NOTE | 2025-03-10 12:00 | W.PN.HOSP.TC ---
Today's Communication/Plan
-
Taper buprenorphine
Assessment / Plan
Assessment / Plan
Physical exam:
General: No acute distress
HEENT: Normocephalic, Atraumatic and dry mucous Membranes
Respiratory: Clear to Auscultation; Negative Wheezes, Rales or Rhonchi
Cardiac: Regular Rhythm and S1/S2
GI: Soft, Nontender and Nondistended
Musculoskeletal: No Clubbing, No Cyanosis and No Edema
Neuro: Awake, Alert and Oriented, no neurological deficit
Psych: Calm
A/P:
Acute metabolic encephalopathy with polysubstance abuse and severe opiate withdrawal:
Continue microdosing buprenorphine tapering course
Not requiring Precedex
Continue monitor COWS
Off Oxy
Continue Tylenol and ketorolac and hydroxyzine and tizanidine as needed
Urine tox positive for fentanyl, amphetamines, methamphetamines, cocaine, and marijuana
CT head unremarkable
PT eval
Hypertension:
Continue amlodipine
Off clonidine scheduled but continue as needed
Leukocytosis:
Likely reactive
Anemia:
Stable
Hyponatremia:
Mild
DVT prophylaxis:
Lovenox SQ
CODE STATUS:
Full code
Total time spent on today's encounter was 35 minutes which included time spent in counseling the patient/family regarding diagnosis and treatment plan as listed above, goals of care, and symptom management. Case was discussed with nursing staff,
specialists, and care coordinators/case management. All labs and imaging personally reviewed by me. Remainder the time spent in detailed review of previous records, lab data, imaging, and other medical provider documentation.
Anticipated Discharge: Within 24 hours
Subjective/Interval History
-
Date of Service: March 10, 2025
Patient improving overall. Afebrile
Objective Data
-
Labs:
Laboratory Results
03/10/25
06:00
WBC Pending
Hgb Pending
Hct Pending
Plt Count Pending
Sodium Pending
Potassium Pending
Chloride Pending
Carbon Dioxide Pending
BUN Pending
Creatinine Pending
Glucose Pending
Calcium Pending
Total Bilirubin Pending
AST Pending
ALT Pending
Alkaline Phosphatase Pending
Vital Signs:
Vital Signs
Temp Pulse Resp BP Pulse Ox
98.1 F 91 16 137/102 99
03/10/25 11:38 03/10/25 11:38 03/10/25 11:38 03/10/25 11:38 03/10/25 11:38
I&O
03/09/25 03/10/25 03/11/25
06:59 06:59 06:59
Intake Total 615 / 615 2400 / 2400
Output Total 2625 / 2625 3350 / 3350
Balance -2009 / -2009 -950 / -950
[2025-03-10 15:29] VITALS: BP 121/97
--- NOTE | 2025-03-10 16:09 | CM ---
Pt reports homelessness.
He has been offered housing, substance abuse resources and [facility]; declines all resources offered, currently stating he will return to the street; he anticipates being incarcerated upon discharge.
--- NOTE | 2025-03-10 16:33 | VATNOTE ---
During routine IV assessment, both of pt's IVs are out. Informed pt that I would need to place a new IV site as the patient has been ordered to be on a school bus monitor. Pt refusing restart. Pt educated about the rationale for having an IV site while
on a school bus monitor. Pt states: 'there's nothing wrong with my heart, you're not sticking me again.' Informed pt I would notify the MD and make a note in his chart. Discussed with PCN and MD notified via [employer].
[2025-03-10] MEDS: LOVENOX SC (17:14)
[2025-03-10 20:07] VITALS: BP 132/92
[2025-03-10 22:46] VITALS: BP 118/76
[2025-03-11 03:34] VITALS: BP 137/95
[2025-03-11 05:15] VITALS: BMI 23.0
[2025-03-11 06:00] VITALS: BMI 23.0
[2025-03-11 07:00] VITALS: BP 133/97
[2025-03-11] MEDS: SUBUTEX 16 MG SL (07:59)
[2025-03-11] MEDS: NORVASC 5 MG PO (08:00)
[2025-03-11] MEDS: TYLENOL 1000 MG PO (08:00)
--- NOTE | 2025-03-11 09:00 | PTCARENOTE ---
Pt observed ambulating in hallways by [address] Pt walked by nurses station with head down. RN follow patient to elevator and patient stated, 'I am leaving'. This RN informed patient he needs to sign an AMA form, patient refused and
continued to enter elevator, security called, security in hallway by elevator. MD made aware. Patient entered elevator, security followed. MD on unit, informed that patient left unit. Security on unit called police department. Pt exited [address]
via elevator with security team.
--- NOTE | 2025-03-11 09:05 | W.DCSUMMARY ---
Discharge Summary
Discharge Data
Date of Admission: 03/07/25
Date of Discharge: 03/11/25
-
Pending Results: No
Hospital Course
Patient 44 years old male with history of polysubstance abuse came into the hospital after dropped off at the hospital by [employer] police after doing emergency room for patient did appear off balance and appeared lethargic and altered. Patient was
noted to be intoxicated and also in severe opiate withdrawal. Patient was admitted to ICU and given Precedex drip and placed on microdosing protocol of buprenorphine and narcotics. Patient was started on blood pressure medications. Patient was on
a tapering course that he completed in the hospital. He was going to be discharged on buprenorphine but patient eloped and staff called the police since it was instructed that when he was going to be discharged or if he is leaving please needed to
be contacted. No other events were noticed. Patient basically signed AGAINST MEDICAL ADVICE or better said eloped without waiting for any instructions.
Discharge Plan
-
Patient Disposition: Home (Routine Discharge)
Discharge Diagnosis/Procedures: Severe opioid withdrawal. Polysubstance abuse
Diet: Regular
Activity: As tolerated
Blood Work: PCP to order CBC, BMP within 1 week
Referrals:
UNKNOWN - PT NOT,INTERVIEWE [Family Provider]
Prescriptions:
No Action
Unobtainable
0
Discharge Date and Time
Discharge Date/Time: 03/11/25 09:16
Print Language: CITIZEN OF [place]
--- NOTE | 2025-03-11 09:53 | CM ---
As per RN note patient left floor in street clothes and Police were called .
== END 2025-03-11 09:16 | disposition left against medical advice (07) | DRG 894 ==
LOC: 3 WEST ACU 06:32
PROVIDERS: Internal Medicine; ADMITTING PHYSICIAN Hospitalist; ATTENDING PHYSICIAN Hospitalist; CONSULT PHYSICIAN Internal Medicine Critical Care Medicine; EMERGENCY PHYSICIAN Student in an Organized Health Care Education/Training Program
DX: F11.120 Opioid abuse with intoxication, uncomplicated (principal); G93.41 Metabolic encephalopathy; E87.1 Hypo-osmolality and hyponatremia; Z59.00 Homelessness unspecified; E87.3 Alkalosis; F11.13 Opioid abuse with withdrawal
CPT/HCPCS: 70450; 71045; 80053; 80306; 80307; 81003; 81015; 82077; 82248; 82550; 82805; 82962; 83036; 83735; 84100; 84484; 85025; 85027; 85610; 85730; 87070; 87086; 93005; 96374; 96375; 96376; 97162; 99291; 99406